=== PATIENT | female | born 1960 | race Caucasian/White ===

== ENCOUNTER → 2021-05-17 | Outpatient (CLI) | payer MEDICARE, OTHER ==
[~2021-05-17] MED LIST: PAIN MEDS
== END | disposition home or self-care (01) ==
LOC: ROC 10:34
PROVIDERS: ATTEND Radiology Radiation Oncology
DX: C51.9 Malignant neoplasm of vulva, unspecified (principal); F17.200 Nicotine dependence, unspecified, uncomplicated
CPT/HCPCS: 99214; G0463